=== PATIENT | male | born 1970 | race Two or more races ===

== ENCOUNTER 2017-09-08 18:02 | Emergency (ER) | payer MEDICAID ==
--- NOTE | 2017-09-08 18:59 | ED Physician Documentation ---
History of Present Illness - Stated complaint Stated Complaint: FINGER INJURY - Chief complaint Chief Complaint: Ext Problem - History obtained from History obtained from: Patient - History of Present Illness Timing: Other (3 weeks ago this right-handed gentleman was catching something and basically got his fourth finger crushed and has persistent pain and stiffness there) Review of Systems Constitutional: reports: Reviewed and negative Cardiac: reports: Reviewed and negative Respiratory: reports: Reviewed and negative PD PAST MEDICAL HISTORY - Past Medical History Past Medical History: Yes GI: Crohn's disease - Past Surgical History Past Surgical History: Yes General: Cholecystectomy, Appendectomy, Bowel surgery - Allergies Allergies/Adverse Reactions: Allergies Allergy/AdvReac Type Severity Reaction Status Date / Time mushroom Allergy Unknown Unknown Verified 09/08/17 18:10 morphine Allergy Emesis Verified 09/08/17 18:10 - Social History Does the pt smoke?: No Smoking Status: Never smoker Does the pt drink ETOH?: No Does the pt have substance abuse?: Yes - Immunizations Immunizations are current?: Yes PD ED PE NORMAL - Vitals Vital signs reviewed: Yes - General General: Alert and oriented X 3, No acute distress - HEENT HEENT: PERRL, EOMI - Extremities Extremities: Other (Tender to the mid and distal phalanx of the right fourth finger with limited flexion but MVI at the tip. There is swelling there.) - Neuro Neuro: Alert and oriented X 3, Normal speech Results - Vitals Vitals: Vital Signs - 24 hr 09/08/17 18:07 Temperature 36.9 C Heart Rate 57 L Respiratory 18 Rate Blood Pressure 149/90 H O2 Saturation 98 Oxygen O2 Source Room air Departure - Departure Disposition: 01 Home, Self Care Clinical Impression: Finger sprain Qualifiers: Encounter type: initial encounter Finger: ring finger Sprain of finger site: interphalangeal joint Laterality: right Qualified Code(s): S63.634A - Sprain of interphalangeal joint of right ring finger, initial encounter Condition: Good Record reviewed to determine appropriate education?: Yes Instructions: ED Sprain Hand Comments: Your blood pressure was elevated today on check into the emergency department. This does not mean that you have hypertension, it is a common phenomenon to come to the emergency department and have elevated blood pressure. I recommend that you see your primary care physician within the week to have it rechecked when you are feeling better.
--- NOTE | 2017-09-08 19:25 | XRAY Preliminary Report ---
Exam: XR HAND 3 VIEW RT IMPRESSION: 1. No fracture or malalignment. 2. Soft tissue swelling centered at the MCP region. 3. If patient remains symptomatic, recommend follow up in 10-14 days. [facility] SITE ID: [id number]
--- NOTE | 2017-09-08 19:32 | XRAY Report ---
EXAM: RIGHT HAND RADIOGRAPHY EXAM DATE: 09/08/2017 07:19 PM. CLINICAL HISTORY: Hand injury. COMPARISON: None. TECHNIQUE: 3 views. FINDINGS: Bones: Normal. No fractures or bone lesions. Joints: Normal. No subluxations. Soft Tissues: Swelling centered at the MTP joint level. IMPRESSION: 1. No fracture or malalignment. 2. Soft tissue swelling centered at the MCP region. 3. If patient remains symptomatic, recommend follow up in 10-14 days. [facility] Referring Provider Line: [phone] SITE ID: [id number]
[2017-09-08 19:40] VITALS: BP 139/84
== END 2017-09-08 19:35 | disposition home or self-care (01) ==
LOC: ED 18:02
DX: S63.634A Sprain of interphalangeal joint of right ring finger, initial encounter (principal); W23.0XXA Caught, crushed, jammed, or pinched between moving objects, initial encounter; R03.0 Elevated blood-pressure reading, without diagnosis of hypertension
CPT/HCPCS: 99282; 99283

== ENCOUNTER 2017-09-15 15:34 | Emergency (ER) | payer MEDICAID ==
[2017-09-15] MEDS ORDERED: SUMAtriptan 6 MG/0.5 ML VIAL SUBQ STA (15:59)
--- NOTE | 2017-09-15 16:01 | ED Physician Documentation ---
History of Present Illness - Stated complaint Stated Complaint: ABD PX - Chief complaint Chief Complaint: Abd Pain - Additonal information Additional information: hx from pt 47 male hx migraines and crohns onset today photophobia phonophobia vertigo nausea and some loose stools no bad food travel sick contacts he isn't quite sure if this is an early onset of migraine or crohns flare not on any meds at this time Review of Systems Constitutional: denies: Fever Eyes: reports: Photophobia Throat: denies: Sore throat Cardiac: denies: Chest pain / pressure Respiratory: denies: Dyspnea, Cough GI: reports: Nausea, Diarrhea (loose BMs). denies: Bloody / black stool (he isnt sure) Neurologic: reports: Other (dizzy). denies: Focal weakness, Numbness, Headache Endocrine: denies: Easy bruising / bleeding Immunocompromised: denies: Immunocompromised PD PAST MEDICAL HISTORY - Past Medical History Past Medical History: Yes Cardiovascular: Hypertension Respiratory: None Neuro: None Endocrine/Autoimmune: None GI: Crohn's disease : None HEENT: None Psych: None Musculoskeletal: None Derm: None - Past Surgical History Past Surgical History: Yes General: Cholecystectomy, Appendectomy, Bowel surgery - Present Medications Home Medications: Ambulatory Orders Medication Instructions Recorded Confirmed No Known Home Medications [No 09/15/17 09/15/17 Known Home Medications] - Allergies Allergies/Adverse Reactions: Allergies Allergy/AdvReac Type Severity Reaction Status Date / Time mushroom Allergy Unknown Unknown Verified 09/15/17 15:44 morphine Allergy Emesis Verified 09/15/17 15:44 - Social History Does the pt smoke?: No Smoking Status: Never smoker Does the pt drink ETOH?: No Does the pt have substance abuse?: Yes - Immunizations Immunizations are current?: Yes - POLST Patient has POLST: No PD ED PE NORMAL - Vitals Vital signs reviewed: Yes - General General: Alert and oriented X 3 - HEENT HEENT: Other (pupils 2 photophobic not ijected globes soft no TA TTP EOMI) - Neck Neck: Supple, no meningeal sign - Cardiac Cardiac: RRR - Respiratory Respiratory: No respiratory distress, Clear bilaterally - Abdomen Abdomen: Soft, Non tender, Other (momentary TTP epigastric region but not on rpt palp) - Derm Derm: Warm and dry - Neuro Neuro: Alert and oriented X 3, table tender 2-12 intact, No motor deficit, No sensory deficit, Normal speech Eye Opening: Spontaneous Motor: Obeys Commands Verbal: Oriented GCS Score: 15 Results - Vitals Vitals: Vital Signs - 24 hr 09/15/17 09/15/17 15:41 17:31 Temperature 36.8 C 37.1 C Heart Rate 66 64 Respiratory 16 14 Rate Blood Pressure 133/77 H 131/79 H O2 Saturation 99 99 Oxygen O2 Source Room air PD MEDICAL DECISION MAKING - ED course ED course: with photphobia phonobia nausea and vertigo seems more c/w migraine than crohns pt txed with imitrex zofran and meclizine went to see if pt felt better and he was gone staff who saw him leave states he did not appear angry and was ambulatory hopefully he felt better
[2017-09-15] MEDS ORDERED: ONDANSETRON ODT 4 MG TABLET TL STA (16:55)
[2017-09-15 17:32] VITALS: BP 131/79
[2017-09-15] MEDS ORDERED: MECLIZINE 12.5 MG TABLET PO STA (17:33)
== END 2017-09-15 18:00 | disposition left against medical advice (07) ==
LOC: ED 15:34
DX: R42 Dizziness and giddiness (principal); G43.909 Migraine, unspecified, not intractable, without status migrainosus; I10 Essential (primary) hypertension
CPT/HCPCS: 96372; 99283; A9270; Q0162